=== PATIENT | female | born 1965 | race Caucasian/White ===

== ENCOUNTER 2017-08-12 11:01 | Emergency (ER) | payer OTHER ==
[~2017-08-12] VITALS: Ht 160 cm; Wt 67.1 kg
[2017-08-12] MEDS ORDERED: SYNTHROID75 MCG (11:29)
== END 2017-08-12 15:47 | disposition home or self-care (01) ==
LOC: ER 11:01
DX: K52.9 Noninfective gastroenteritis and colitis, unspecified (principal)